=== PATIENT | female | born 1980 | race Caucasian/White ===

== ENCOUNTER 2016-10-04 09:08 | Emergency (ER) | payer OTHER | END 2016-10-04 11:26 | disposition home or self-care (01) | LOC: FER 09:08 | DX: S60.222A Contusion of left hand, initial encounter (principal); M25.532 Pain in left wrist; F17.210 Nicotine dependence, cigarettes, uncomplicated; X58.XXXA Exposure to other specified factors, initial encounter; Y92.009 Unspecified place in unspecified non-institutional (private) residence as the place of occurrence of the external cause | CPT/HCPCS: 73090; 73110; 73130 ==

== ENCOUNTER 2016-11-03 11:22 | Emergency (ER) | payer OTHER | END 2016-11-03 13:08 | disposition home or self-care (01) | LOC: FER 11:22 | DX: S60.571A Other superficial bite of hand of right hand, initial encounter (principal); W55.01XA Bitten by cat, initial encounter | CPT/HCPCS: 73130; 99283 ==

== ENCOUNTER 2020-05-29 20:28 | Emergency (ER) | payer OTHER ==
[~2020-05-29 20:28] MED LIST: ATARAX25 MG PO; FLEXERIL10 MG PO; IBUPROFEN800 MG PO; NORCO 5-325 TA1 EACH PO; PERCOCET 5-3251 EACH PO; VIBRAMYCIN100 MG PO; ZOFRAN ODT4 MG SL; ZOFRAN4 MG SL
[2020-05-29 21:26] LABS: BASOPHIL 0.3 % (0-2); EOSINOPHIL 0.3 % (0-5); HCT 40.6 % (37.0-47.0); HGB 13.6 g/dl (12.5-16.0); LYMPHOCYTE 27.4 % (15-48); MCH 33.7 pg (25.0-31.0); MCHC 33.5 g/dL (32.0-36.0); MCV 100.7 fL (78.0-100.0); MONOCYTE 5.4 % (0-12); MPV 9.6 fL (6.0-9.5); NEUTROPHIL 66.2 % (41-80); NRBC 0; PLT 286 K/uL (150-400); RBC 4.03 M/uL (4.20-5.40); RDW 12.3 % (11.5-14.0); WBC 7.6 K/uL (4.0-10.5)
[2020-05-29 21:37] LABS: ALBUMIN 3.6 g/dL (3.4-5.0); BILIRUBIN - TOTAL 0.2 mg/dL (0.2-1.0); BUN/CREAT RATIO (CALC) 11.7 RATIO; CREATININE 0.77 mg/dL (0.51-0.95); GLOBULIN (CALCULATION) 3.9 g/dL; POTASSIUM 3.7 mmol/L (3.5-5.1); TOTAL PROTEIN 7.5 g/dL (6.4-8.2)
[2020-05-29] MEDS ORDERED: PERCOCET 5-3251 EACH PO (23:23)
[2020-05-30] MEDS ORDERED: PERCOCET 5-3251 EACH PO (05:33)
== END 2020-05-30 00:50 | disposition home or self-care (01) ==
LOC: FER 20:28
PROVIDERS: Emergency Medicine
DX: R07.9 Chest pain, unspecified (principal); M54.5 Low back pain; R06.02 Shortness of breath; M79.662 Pain in left lower leg; R11.0 Nausea; F17.200 Nicotine dependence, unspecified, uncomplicated
CPT/HCPCS: 36415; 71046; 80053; 84484; 85025; 85379; J1170; J1885; J2270; J2405

== ENCOUNTER 2020-08-02 15:24 | Emergency (ER) | payer OTHER ==
[2020-08-02] MEDS ORDERED: BACLOFEN 10MG T10 MG PO (17:42)
== END 2020-08-02 18:08 | disposition home or self-care (01) ==
LOC: FER 15:24
DX: S20.211A Contusion of right front wall of thorax, initial encounter (principal); F17.290 Nicotine dependence, other tobacco product, uncomplicated; W55.22XA Struck by cow, initial encounter
CPT/HCPCS: 71101; 72072; 94010; J1885

== ENCOUNTER 2020-09-29 10:32 | Emergency (ER) | payer OTHER ==
[~2020-09-29 10:32] MED LIST changes: +BACLOFEN 10MG T10 MG PO
[2020-09-29] MEDS ORDERED: TRAMADOL HCL50 MG PO (13:29)
[2020-09-29] MEDS ORDERED: ZOFRAN4 M1 PO (13:31)
== END 2020-09-29 15:17 | disposition home or self-care (01) ==
LOC: FER 10:32
DX: S00.03XA Contusion of scalp, initial encounter (principal); W19.XXXA Unspecified fall, initial encounter
CPT/HCPCS: 70450; 72125; J1885

== ENCOUNTER 2020-12-04 01:05 | Emergency (ER) | payer SELFPAY ==
[~2020-12-04 01:05] MED LIST changes: +TRAMADOL HCL50 MG PO; +ZOFRAN4 M1 PO
[2020-12-04 02:43] LABS: BILIRUBIN NEGATIVE (NEGATIVE); BLOOD 1+ Ery/uL (NEGATIVE); CLARITY CLEAR (CLEAR); COLOR YELLOW (YELLOW); GLUCOSE (U) NORMAL (NORMAL); LEUKOCYTES NEGATIVE Leu/uL (NEGATIVE); NITRITE NEGATIVE (NEGATIVE); PROTEIN NEGATIVE (NEGATIVE); SPECIFIC GRAVITY <=1.005 (1.001-1.030); UROBILINOGEN 0.2 mg/dL (0.2-1.0); pH 6.5 (5.0-9.0)
[2020-12-04 02:46] LABS: ECSTASY (MDMA) NEGATIVE (NEGATIVE); MARIJUANA (THC) NEGATIVE (NEGATIVE); METHADONE NEGATIVE (NEGATIVE); OPIATES NEGATIVE (NEGATIVE)
[2020-12-04 02:47] LABS: AMPHETAMINES NEGATIVE (NEGATIVE); BARBITURATES NEGATIVE (NEGATIVE); OXYCODONE NEGATIVE (NEGATIVE)
[2020-12-04 02:49] LABS: BACTERIA TRACE; SQUAMOUS EPITHELIAL CELLS RARE
[2020-12-04] MEDS ORDERED: IBUPROFEN800 MG PO (04:40)
[2020-12-04] MEDS ORDERED: PERCOCET 5-3251 EACH PO (04:40)
[2020-12-04] MEDS ORDERED: ATARAX25 MG PO (05:13)
== END 2020-12-04 05:35 | disposition home or self-care (01) ==
LOC: FER 01:05
PROVIDERS: Emergency Medicine Emergency Medical Services
DX: S52.122A Displaced fracture of head of left radius, initial encounter for closed fracture (principal); S06.9X9A Unspecified intracranial injury with loss of consciousness of unspecified duration, initial encounter; F17.210 Nicotine dependence, cigarettes, uncomplicated; Y04.2XXA Assault by strike against or bumped into by another person, initial encounter; Y92.007 Garden or yard of unspecified non-institutional (private) residence as the place of occurrence of the external cause
CPT/HCPCS: 36415; 70450; 70486; 71045; 72125; 72131; 73080; 80305; 81001; 96374; 96375; 96376; G0480; J1170; J1885; J2060; J2405

== ENCOUNTER 2021-01-16 15:53 | Emergency (ER) | payer OTHER ==
[2021-01-16] MEDS ORDERED: ZOFRAN4 M1 PO (20:13)
[2021-01-16] MEDS ORDERED: NAPROXEN500 MG PO (20:13)
== END 2021-01-16 20:29 | disposition home or self-care (01) ==
LOC: FER 15:53
DX: S93.401A Sprain of unspecified ligament of right ankle, initial encounter (principal); U07.1 COVID-19; Z98.890 Other specified postprocedural states; W19.XXXA Unspecified fall, initial encounter; Y93.89 Activity, other specified; Y92.009 Unspecified place in unspecified non-institutional (private) residence as the place of occurrence of the external cause
CPT/HCPCS: 73590; 73630; 96372; J1885; U0002

== ENCOUNTER 2021-02-13 00:03 | Emergency (ER) | payer OTHER ==
[~2021-02-13 00:03] MED LIST changes: +NAPROXEN500 MG PO
[2021-02-13 01:00] LABS: BASOPHIL 0.1 % (0-2); EOSINOPHIL 0.7 % (0-5); HCT 40.4 % (37.0-47.0); LYMPHOCYTE 12.9 % (15-48); MCH 32.1 pg (25.0-31.0); MCHC 32.2 g/dL (32.0-36.0); MCV 99.8 fL (78.0-100.0); MONOCYTE 4.2 % (0-12); MPV 10.3 fL (6.0-9.5); NEUTROPHIL 80.3 % (41-80); NRBC 0; PLT 193 K/uL (150-400); RBC 4.05 M/uL (4.20-5.40); RDW 12.6 % (11.5-14.0)
[2021-02-13 01:20] LABS: ALBUMIN 3.9 g/dL (3.4-5.0); BILIRUBIN - TOTAL 0.3 mg/dL (0.2-1.0); BUN/CREAT RATIO (CALC) 14.7 RATIO; CREATININE 1.02 mg/dL (0.51-0.95); GLOBULIN (CALCULATION) 3.2 g/dL; POTASSIUM 3.8 mmol/L (3.5-5.1); TOTAL PROTEIN 7.1 g/dL (6.4-8.2)
[2021-02-13 01:22] LABS: LACTIC ACID 2.9 mmol/L (0.4-1.9)
[2021-02-13 02:19] LABS: BILIRUBIN 1+ mg/dL (NEGATIVE); BLOOD NEGATIVE Ery/uL (NEGATIVE); CLARITY CLEAR (CLEAR); COLOR YELLOW (YELLOW); GLUCOSE (U) NORMAL (NORMAL); LEUKOCYTES NEGATIVE Leu/uL (NEGATIVE); NITRITE NEGATIVE (NEGATIVE); PROTEIN 2+ mg/dL (NEGATIVE); SPECIFIC GRAVITY >=1.030 (1.001-1.030); UROBILINOGEN 0.2 mg/dL (0.2-1.0); pH 5.5 (5.0-9.0)
[2021-02-13 02:23] LABS: BARBITURATES NEGATIVE (NEGATIVE); ECSTASY (MDMA) NEGATIVE (NEGATIVE); MARIJUANA (THC) NEGATIVE (NEGATIVE); METHADONE POSITIVE (NEGATIVE); OPIATES NEGATIVE (NEGATIVE)
[2021-02-13 02:24] LABS: AMPHETAMINES POSITIVE (NEGATIVE); OXYCODONE POSITIVE (NEGATIVE)
[2021-02-13 02:26] LABS: CALCIUM OXALATE CRYSTALS TRACE; SQUAMOUS EPITHELIAL CELLS RARE
[2021-02-13] MEDS ORDERED: NORCO 5-325 TA1 EACH PO (04:16)
[2021-02-13] MEDS ORDERED: ROBAXIN500 MG PO (04:16)
[2021-02-13] MEDS ORDERED: MEDROL 4MG DOSEP4 MG PO (04:16)
[2021-02-13] MEDS ORDERED: NARCAN4 MG (04:16)
[2021-02-13] MEDS ORDERED: IBUPROFEN800 MG PO (04:16)
[2021-02-13] MEDS ORDERED: PERCOCET 5-3251 EACH PO (04:18)
== END 2021-02-13 04:55 | disposition home or self-care (01) ==
LOC: FER 00:03
PROVIDERS: Emergency Medicine Emergency Medical Services
DX: T50.901A Poisoning by unspecified drugs, medicaments and biological substances, accidental (unintentional), initial encounter (principal); M96.89 Other intraoperative and postprocedural complications and disorders of the musculoskeletal system; Y84.8 Other medical procedures as the cause of abnormal reaction of the patient, or of later complication, without mention of misadventure at the time of the procedure; F17.200 Nicotine dependence, unspecified, uncomplicated
CPT/HCPCS: 36415; 70450; 71045; 71260; 80053; 80305; 81001; 82550; 83605; 84484; 85025; 93005; 94010; J1885; J2930; Q9967

== ENCOUNTER 2021-03-15 03:27 | Emergency (ER) | payer OTHER ==
[~2021-03-15 03:27] MED LIST changes: +MEDROL 4MG DOSEP4 MG PO; +NARCAN4 MG; +ROBAXIN500 MG PO
[2021-03-15 03:56] LABS: BASOPHIL 0.3 % (0-2); EOSINOPHIL 1.8 % (0-5); HCT 39.6 % (37.0-47.0); HGB 13.1 g/dl (12.5-16.0); MCH 32.3 pg (25.0-31.0); MCHC 33.1 g/dL (32.0-36.0); MCV 97.5 fL (78.0-100.0); MONOCYTE 7.7 % (0-12); MPV 9.5 fL (6.0-9.5); NRBC 0; PLT 206 K/uL (150-400); RBC 4.06 M/uL (4.20-5.40); RDW 12.7 % (11.5-14.0); WBC 6.3 K/uL (4.0-10.5)
[2021-03-15 04:15] LABS: ALBUMIN 3.8 g/dL (3.4-5.0); BILIRUBIN - TOTAL 0.5 mg/dL (0.2-1.0); BUN/CREAT RATIO (CALC) 11.1 RATIO; CREATININE 0.72 mg/dL (0.51-0.95); GLOBULIN (CALCULATION) 3.2 g/dL; POTASSIUM 3.5 mmol/L (3.5-5.1)
[2021-03-15 08:44] LABS: BILIRUBIN NEGATIVE (NEGATIVE); BLOOD NEGATIVE Ery/uL (NEGATIVE); CLARITY CLOUDY (CLEAR); COLOR YELLOW (YELLOW); GLUCOSE (U) NORMAL (NORMAL); LEUKOCYTES NEGATIVE Leu/uL (NEGATIVE); NITRITE NEGATIVE (NEGATIVE); PROTEIN NEGATIVE (NEGATIVE); SPECIFIC GRAVITY >=1.030 (1.001-1.030); UROBILINOGEN 0.2 mg/dL (0.2-1.0)
[2021-03-15 08:47] LABS: ECSTASY (MDMA) POSITIVE (NEGATIVE); MARIJUANA (THC) NEGATIVE (NEGATIVE); METHADONE NEGATIVE (NEGATIVE)
[2021-03-15 08:48] LABS: AMPHETAMINES POSITIVE (NEGATIVE); BARBITURATES NEGATIVE (NEGATIVE); OPIATES NEGATIVE (NEGATIVE); OXYCODONE NEGATIVE (NEGATIVE)
== END 2021-03-15 09:57 | disposition home or self-care (01) ==
LOC: FER 03:27
PROVIDERS: Emergency Medicine
DX: R42 Dizziness and giddiness (principal); F17.200 Nicotine dependence, unspecified, uncomplicated
CPT/HCPCS: 36415; 70450; 70548; 70553; 71045; 80053; 80305; 81003; 84484; 85025; 93005; A9579; J0780; J1200; J1885; J7030